=== PATIENT | female | born 1980 | race African-American/Black ===

== ENCOUNTER 2020-10-19 22:00 | Emergency (ER) | payer OTHER ==
[~2020-10-19] VITALS: Ht 165.1 cm; Wt 59.0 kg
[~2020-10-19 22:00] MED LIST: BACTRIM DS TAB1 EACH PO; DIFLUCAN150 M1 PO; DIFLUCAN150 MG PO; FLAGYL500 MG PO; HIBICLENS120 ML TP; IBUPROFEN 600600 M1 PO; MACROBID 100 M100 M1 PO; NOHOMEMEDICATIONS; NORCO 5-325 TA1 EACH PO; PERCOCET 5-3251 EACH PO; PRENATAL; PYRIDIUM200 M2 PO; SEASONIQUE 0.11 EACH PO; VIBRAMYCIN 100100 MG PO
[2020-10-19 22:11] VITALS: BP 113/73
[2020-10-19] MEDS ORDERED: DIAZEPAM 5 MG5 M1 PO (22:40)
[2020-10-19] MEDS ORDERED: IBUPROFEN 600600 M1 PO (22:40)
== END 2020-10-19 22:50 | disposition home or self-care (01) ==
LOC: ER 22:00
DX: S39.012A Strain of muscle, fascia and tendon of lower back, initial encounter (principal); S20.211A Contusion of right front wall of thorax, initial encounter; M79.652 Pain in left thigh; M79.651 Pain in right thigh; V49.88XA Car occupant (driver) (passenger) injured in other specified transport accidents, initial encounter; Y93.89 Activity, other specified; Y92.413 State road as the place of occurrence of the external cause; Y99.9 Unspecified external cause status